=== PATIENT | female | born 1980 | race Two or more races ===

== ENCOUNTER 2024-12-21 14:56 | Emergency (ER) | payer MEDICAID ==
[~2024-12-21] VITALS: Ht 157.5 cm; Wt 49.9 kg
[2024-12-21 16:06] LABS: PLATELET COUNT (AUTO) 342 K/uL (179-408); RED BLOOD CELL COUNT(AUTO) 3.90 MIL/uL (3.63-4.92); RED CELL DISTRIBUTION WIDTH 12.9 % (12.3-17.7); WHITE BLOOD COUNT (AUTO) 13.6 K/uL (3.8-11.8)
[2024-12-21] MEDS ORDERED: diphenhydrAMINE 50 MG/1 ML VIAL ONE (16:13)
[2024-12-21] MEDS ORDERED: METOCLOPRAMIDE HCL 10 MG/2 ML VIAL ONE (16:13)
[2024-12-21] MEDS ORDERED: KETOROLAC TROMETHAMINE 30 MG INJ ONE (16:13)
[2024-12-21 16:16] LABS: CREATININE 0.5 mg/dL (0.6-1.3); SODIUM SERUM 143 mmol/L (136-145); UREA NITROGEN, BLOOD 12 mg/dL (7-18)
[2024-12-21 16:22] LABS: ASPARTATE AMINOTRANSFERASE 11 U/L (15-37); TOTAL PROTEIN, SERUM 6.4 g/dL (6.4-8.2)
[2024-12-21] MEDS: KETOROLAC TROMETHAMINE 30 MG INJ IVP ONE (16:23)
[2024-12-21] MEDS: METOCLOPRAMIDE HCL 10 MG/2 ML VIAL IV ONE (16:23)
[2024-12-21] MEDS: diphenhydrAMINE 50 MG/1 ML VIAL IV ONE (16:23)
[2024-12-21] MEDS: IV NS 1000 ML 1,000 ML IV ONE (16:23)
[2024-12-21 17:00] VITALS: BP 86/52
[2024-12-21] MEDS ORDERED: TRAZ-257 PO (17:21)
[2024-12-21] MEDS ORDERED: SEMA1.7P (17:21)
[2024-12-21] MEDS ORDERED: SUMA100T16 PO (17:21)
[2024-12-21] MEDS ORDERED: CETI-355 (17:21)
[2024-12-21 17:57] LABS: *BILIRUBIN,URIN NEGATIVE (NEGATIVE); *BLOOD, URINE NEGATIVE (NEGATIVE); *CLARITY,URINE CLEAR (CLEAR); *COLOR,URINE YELLOW (YELLOW); *KETONES,URINE NEGATIVE (NEGATIVE); *PROTEIN,URINE NEGATIVE (NEGATIVE); *UROBILINOGEN,URINE 0.2 E.U./dl (NORMAL); LEUKOCYTE ESTERASE ,URINE NEGATIVE (NEGATIVE); NITRITE, URINE NEGATIVE (NEGATIVE); UGLUCOSE NEGATIVE (NEGATIVE)
[2024-12-21 18:10] LABS: *AMPHETAMINE, URINE POSITIVE (NEGATIVE); *BARBITURATE, URINE NEGATIVE (NEGATIVE); *BENZODIAZEPINE, URINE NEGATIVE (NEGATIVE); *CANNABINOID, URINE NEGATIVE (NEGATIVE); *COCCAINE, URINE NEGATIVE (NEGATIVE); *OPIATE, URINE NEGATIVE (NEGATIVE); *PHENCYCLIDINE SCREEN,URINE NEGATIVE (NEGATIVE); FENTANYL, URINE NEGATIVE (NEGATIVE)
[2024-12-21] MEDS ORDERED: METO-295 PO (18:13)
[2024-12-21] MEDS ORDERED: NAPR500T6 PO (18:13)
[2024-12-21] MEDS ORDERED: DIPH25CA83 PO (18:13)
[2024-12-21 18:29] VITALS: BP 85/57; O2SAT 99
== END 2024-12-21 18:30 | disposition home or self-care (01) ==
LOC: ER 14:56
DX: S01.111A Laceration without foreign body of right eyelid and periocular area, initial encounter (principal); S40.011A Contusion of right shoulder, initial encounter; S60.222A Contusion of left hand, initial encounter; S70.01XA Contusion of right hip, initial encounter; G43.909 Migraine, unspecified, not intractable, without status migrainosus; R55 Syncope and collapse; E46 Unspecified protein-calorie malnutrition; E86.0 Dehydration; F15.10 Other stimulant abuse, uncomplicated; Z68.20 Body mass index [BMI] 20.0-20.9, adult; W18.39XA Other fall on same level, initial encounter; Y93.89 Activity, other specified; Y92.89 Other specified places as the place of occurrence of the external cause; Y99.8 Other external cause status
CPT/HCPCS: 99285; 96374; 96361; 96375; 80076; 80048; 81003; 83735; 85025; 36415; 93005; 73030; 73140; 73502; 82533; 80307; J1885; J1200; J2765; J7040; A4606; A4663